=== PATIENT | female | born 1975 | race Hispanic/Latino ===

== ENCOUNTER 2016-02-15 00:22 | Emergency (ER) | payer OTHER ==
[~2016-02-15] VITALS: Ht 157.5 cm; Wt 99.8 kg
[~2016-02-15 00:22] MED LIST: ALBUTEROL SULFAT3 M1 INH; ALBUTEROL0.09 MG/A1 INH; AMOXIL500 MG PO; ATROVENT 0.02%2.5 ML INH; AZITHROMYCIN500 M3 PO; BREO ELLIPTA1 PO1 INH; BUSPIRONE10 MG; CIPRO 500MG (E500 MG PO; DELTASONE20 MG PO; DUONEB 3 MG/3 ML3 ML INH/SOL; EPIPEN ADULT A0.3 MG IM; ESCITALOPRAM10 MG; FIORICET 325 MG1 TAB PO; FLAGYL500 MG PO; FLOMAX0.4 M1 PO; GUAFENESIN400 MG PO; HYDROXYZINE50 MG PO; IBUPROFEN600 M1 PO; IBUPROFEN800 M1 PO; IMITREX50 MG; KETOROLAC TROME10 M1 PO; LOMOTIL 2.5-0.1 EACH PO; MACROBID 100 M100 MG PO; MAXALT10 M1 PO; MEDROL DOSEPAK1 PAC PO; MOBIC15 M1 PO; MOMETASONE0.05 MG/Ac NASB; MOTRIN800 MG PO; NAPHAZOLINE IO; PATADAY2.5 ML OPH; PERCOCET 5-3251 EACH PO; POLYTRIM EYE DR10 ML OPH; POLYTRIM O200 GTT/BO OPH; PRED FORTE 10 M10 ML OPH; PREDNISONE 10MG10 M1 PO; PREDNISONE 20MG20 MG PO; PREDNISONE50 MG PO; PROAIR HFA0.09 MG/Ac INH; PYRIDIUM100 MG PO; PYRIDIUM200 M1 PO; RIZATRIPTAN BEN10 MG PO; ROBITUSSIN W/CO10 ML PO; SINGULAIR10 MG PO; SYMBICORT 160/41 PUF INH; TYLENOL #31 TAB PO; ZITHROMAX Z-PA250 MG PO; ZOFRAN ODT4 M1 SL; ZOFRAN4 M2 PO
[2016-02-15 00:29] VITALS: BP 110/74
--- NOTE | 2016-02-15 00:46 | ED DYSPNEA/ASTHMA COMPLAINT ---
History of Present Illness General Chief Complaint: General Adult Stated Complaint: "MY CHEST HURTS, I BEEN COUGHING A LOT" Source: patient, old records Exam Limitations: no limitations Vital Signs & Intake/Output Vital Signs & Intake/Output Vital Signs Date Time Temp Pulse Resp B/P Pulse O2 O2 Flow FiO2 Ox Delivery Rate 02/14 0032 96 Room Air Room Air 02/14 0029 97.6 111 20 110/74 96 Room Air Allergies Coded Allergies: Penicillins (HIVES 02/15/16) cat dander (HIVES, DYSPNEA 02/15/16) erythromycin base (From ERYTHROCIN) (HIVES 02/15/16) shellfish derived (HIVES, RASH 02/15/16) Reconcile Medications Albuterol Sulfate (Proair Hfa) 0.09 MG/Actuation BERRY 2 PUFF INH PRN ASTHMA ( Reported) Albuterol Sulfate 3 ML NEB 3 ML INH PRN ASTHMA (Reported) Albuterol Sulfate/Ipratropiu (Duoneb) 3 MG/3 ML NEB 1 Vial INH/SARAHI BID ASTHMA (Reported) Azithromycin (Zithromax) 250 MG TABLET 1 DP PO AD BRONCHITIS 2 the first day followed by 1 for days 2-5 Epinephrine (Epipen 2-Fercho) 0.3 MG KIT 0.3 MG IM AD PRN ANAPHYLAXIS (Reported) FLUTICASONE/VILANTEROL (Breo Ellipta 200-25 Mcg INH) 1 POW POW 1 PUFF INH QAM COPD (Reported) Guaifenesin (Guafenesin) 400 MG TAB 1 TAB PO TID PRN COUGH/CONGESTION Ibuprofen 600 MG TABLET 1 TAB PO Q6PRN PRN pain with food Meloxicam (Mobic) 15 MG TABLET 1 TAB PO DAILY PRN tendinitis Olopatadine HCl (Pataday) 0.2 % DROPS 1 GTT OPH DAILY PRN ALLERGIES (Reported ) Ondansetron (Zofran Odt) 4 MG TAB.RAPDIS 1 TAB SL TID PRN NAUSEA Rizatriptan Benzoate (Maxalt) 10 MG TABLET 1 TAB PO QDAY PRN MIGRAINE Robitussin AC (Guaifenesin-Codeine Syrup) 200 MG-20 MG/10 ML LIQUID 10 ML PO Q6P PRN COUGH Triage Note: TRIAGE: PT TO ER C/C URI S/S X 4-5 DAYS. REPORTS PRODUCTIVE COUGH WITH GREENISH PHLEGM AND "A LITTLE BIT OF BLOOD IN THERE". STARTED WITH PAIN TO RT SIDE "AT MY KIDNEY AND LUNG AREA" X COUPLE DAYS WHICH IS WORSE WITH COUGHING. Triage Nurses Notes Reviewed? yes : No Patient currently breastfeeds: No HPI: Patient presents with a productive cough and chest and back pain when she coughs. Patient states that she has been having nausea vomiting diarrhea for the past 3 weeks. She was seen in the emergency department and prescribed medications but they have not been helping. Patient states that she is drinking enough fluids to keep herself hydrated. Patient states that she started with a nonproductive cough approximately 2 weeks ago. Return productive last week and since yesterday she has been getting a sharp stabbing pain in the center of her chest and her right mid back whenever she coughs. There is no pain when she is not coughing. There is no radiation of the pain. At its worst pain is 8 out of 10. Patient states that she's had similar symptoms in the past when she has had bronchitis. Past History Travel History Traveled to [place] past 21 day No Medical History Any Pertinent Medical History? 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 No Review of Systems Review of Systems Constitutional: Reports: no symptoms. EENTM: Reports: no symptoms. Respiratory: Reports: see HPI, cough, sputum production. Cardiovascular: Reports: see HPI. GI: Reports: see HPI, diarrhea, nausea. Genitourinary: Reports: no symptoms. Musculoskeletal: Reports: see HPI, back pain. Skin: Reports: no symptoms. Neurological/Psychological: Reports: no symptoms. Hematologic/Endocrine: Reports: no symptoms. Immunologic/Allergic: Reports: no symptoms. All Other Systems: Reviewed and Negative Physical Exam Physical Exam General Appearance: well developed/nourished, alert, awake, anxious, moderate distress Head: atraumatic Eyes: Bilateral: PERRL, EOMI. Ears, Nose, Throat: normal pharynx, normal ENT inspection, hearing grossly normal Neck: normal inspection, supple Respiratory: normal breath sounds, no respiratory distress, lungs clear, TENDER TO PALPATION Cardiovascular: regular rate/rhythm, normal peripheral pulses Gastrointestinal: normal bowel sounds, soft, non-tender, no organomegaly Extremities: normal inspection, normal capillary refill, normal range of motion, no edema Neurologic/Psych: no motor/sensory deficits, awake, alert, oriented x 3, normal gait, normal mood/affect Skin: intact, normal color, warm/dry Lymphatic: no anterior cervical luis Core Measures ACS in differential dx? No Severe Sepsis Present: No Septic Shock Present: No Progress Differential Diagnosis: asthma, bronchitis, COPD, pulmonary embolism, pneumonia, pneumothorax Plan of Care: Orders Procedure Date/time Status XRY-CHEST XRAY, PA AND LATERAL 02/14 41 Active Diagnostic Imaging: Viewed by Me: Radiology Read. Discussed w/RAD: Radiology Read. CXR Impression: PATIENT: ILENE PINA PRESENT AGE: 40 PATIENT ACCOUNT NO: [id number] : 76 LOCATION: [facility] ORDERING PHYSICIAN: TYRONE JOHNSON MD SERVICE DATE: 02/15/16 EXAM TYPE: RAD - XRY-CHEST XRAY, PA AND LATERAL EXAMINATION: XR CHEST, 2 VIEWS CLINICAL INFORMATION: Productive cough. Rule out pneumonia. COMPARISON: 06/25/2015 TECHNIQUE: PA and lateral views of the chest were obtained. FINDINGS: Lungs are clear. No consolidation, pneumothorax, or pleural effusion. Cardiac and mediastinal contours are normal. Pulmonary vasculature is unremarkable. Trachea is midline. Osseous structures are unremarkable. IMPRESSION: Normal chest radiographs. DICTATED BY: CATHERINE FERRER MD DATE/TIME DICTATED:02/15/16115 RESEARCH GENETICIST:ELIZ DATE/TIME TRANSCRIBED:02/15/16115 CONFIDENTIAL, DO NOT COPY WITHOUT APPROPRIATE AUTHORIZATION. <Electronically signed in Other Vendor System> SIGNED BY: CATHERINE FERRER MD 02/15/16120 Initial ED EKG: none Departure Departure Disposition: HOME OR SELF CARE Condition: Stable Clinical Impression Primary Impression: Bronchitis Referrals: KARLEE TRAMMELL APRN (PCP/Family) Additional Instructions: CONTINUE TO DRINK PLENTY OF FLUIDS RETURN IF SYMPTOMS WORSEN OR FOR ANY CONCERNS FOLLOW UP WITH YOUR PRIMARY PHYSICIAN Departure Forms: Customer Survey General Discharge Information Prescriptions: Current Visit Scripts Azithromycin (Zithromax) 1 DP PO AD #6 TAB 2 the first day followed by 1 for days 2-5 Robitussin AC (Guaifenesin-Codeine Syrup) 10 ML PO Q6P PRN COUGH #240 ML Critical Care Note Critical Care Note Critical Care Time: non-applicable
[2016-02-15] MEDS ORDERED: ZITHROMAX250 M2 PO (01:06)
[2016-02-15] MEDS ORDERED: GUAIFENESIN-COD10 ML PO (01:06)
--- NOTE | 2016-02-15 01:21 | RADIOLOGY REPORT ---
EXAMINATION: XR CHEST, 2 VIEWS CLINICAL INFORMATION: Productive cough. Rule out pneumonia. COMPARISON: 06/25/2015 TECHNIQUE: PA and lateral views of the chest were obtained. FINDINGS: Lungs are clear. No consolidation, pneumothorax, or pleural effusion. Cardiac and mediastinal contours are normal. Pulmonary vasculature is unremarkable. Trachea is midline. Osseous structures are unremarkable. IMPRESSION: Normal chest radiographs.
== END 2016-02-15 01:33 ==
LOC: ERH 00:22
DX: J40 Bronchitis, not specified as acute or chronic (principal); Z87.891 Personal history of nicotine dependence; R05 Cough

== ENCOUNTER 2016-02-19 09:29 | Emergency (ER) | payer OTHER ==
[~2016-02-19] VITALS: Ht 157.5 cm; Wt 99.8 kg
[~2016-02-19 09:29] MED LIST changes: +GUAIFENESIN-COD10 ML PO; +ZITHROMAX250 M2 PO
--- NOTE | 2016-02-19 09:45 | ED GENERAL ADULT ---
History of Present Illness General Chief Complaint: Upper Respiratory Sx/Fever Stated Complaint: URI/VOMITING Source: patient, old records Exam Limitations: no limitations Vital Signs & Intake/Output Vital Signs & Intake/Output Vital Signs Date Time Temp Pulse Resp B/P Pulse O2 O2 Flow FiO2 Ox Delivery Rate 02/18 1142 99.3 88 18 129/63 91 Room Air 02/18 1011 97 02/18 1010 Room Air Room Air 02/18 0936 98.0 90 15 113/79 97 Room Air Room Air Allergies Coded Allergies: Penicillins (HIVES 02/19/16) cat dander (HIVES, DYSPNEA 02/19/16) erythromycin base (From ERYTHROCIN) (HIVES 02/19/16) shellfish derived (HIVES, RASH 02/19/16) Reconcile Medications Albuterol Sulfate (Proair Hfa) 0.09 MG/Actuation BERRY 2 PUFF INH PRN ASTHMA ( Reported) Albuterol Sulfate 3 ML NEB 3 ML INH PRN ASTHMA (Reported) Albuterol Sulfate/Ipratropiu (Duoneb) 3 MG/3 ML NEB 1 Vial INH/SARAHI BID ASTHMA (Reported) Azithromycin (Zithromax) 250 MG TABLET 1 DP PO AD BRONCHITIS 2 the first day followed by 1 for days 2-5 Benzonatate 200 MG CAPSULE 1 CAP PO TID PRN cough Epinephrine (Epipen 2-Fercho) 0.3 MG KIT 0.3 MG IM AD PRN ANAPHYLAXIS (Reported) FLUTICASONE/VILANTEROL (Breo Ellipta 200-25 Mcg INH) 1 POW POW 1 PUFF INH QAM COPD (Reported) Guaifenesin (Guafenesin) 400 MG TAB 1 TAB PO TID PRN COUGH/CONGESTION Ibuprofen 600 MG TABLET 1 TAB PO Q6PRN PRN pain with food Meloxicam (Mobic) 15 MG TABLET 1 TAB PO DAILY PRN tendinitis Olopatadine HCl (Pataday) 0.2 % DROPS 1 GTT OPH DAILY PRN ALLERGIES (Reported ) Ondansetron (Zofran Odt) 4 MG TAB.RAPDIS 1 TAB SL TID PRN NAUSEA Prednisone 10 MG TABLET 4 TAB PO DAILY BRONCHOSPASM Promethazine HCl 25 MG TABLET 1 TAB PO Q6P PRN nausea/cough Rizatriptan Benzoate (Maxalt) 10 MG TABLET 1 TAB PO QDAY PRN MIGRAINE Robitussin AC (Guaifenesin-Codeine Syrup) 200 MG-20 MG/10 ML LIQUID 10 ML PO Q6P PRN COUGH Triage Note: PT TO ED "THIS IS MY FOURTH TIME COMING HERE FOR THE SAME THING AND THEY KEEP TELLING ME THAT NOTHING IS WRONG WITH ME." PT COMPLAINS OF HAVING A PRODUCTIVE COUGH WITH GREEN PHLEGM FOR "MORE THAN 28 DAYS." AND VOMITING BETWEEN COUGHING. PT WAS PUT ON ANTIBIOTICS THAT HAVEN'T BEEN HELPING HER. O2 WNL IN TRIAGE. NO ACUTE DISTRESS NTOED. ALSO COMPLAINS OF "POSSIBLE FEVERS SINCE I BROKE OUT IN A COLD SORE TODAY." Triage Nurses Notes Reviewed? yes : No Patient currently breastfeeds: No HPI: Patient is a 40-year-old female presents complaining of cough, dyspnea, nausea, vomiting. Patient reports that she began with vomiting and a cough over 28 days ago. Patient has been seen in the emergency department multiple times over the past 1 month and reports no improvement in her symptoms. Patient was seen 4 days ago and was placed on cough medication and levofloxacin but reports symptoms have been worsening. Cough with sputum production. Associated post tussive vomiting and vomiting when she attempts to drink water. Has not been able to eat or drink for the past couple of days. Intermittent subjective fevers. Denies sick contacts. (ALBERTO SHELL) Past History Travel History Traveled to [place] past 21 day No Medical History Any Pertinent Medical History? 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 No (ALBERTO SHELL) Review of Systems Review of Systems Constitutional: Reports: chills, fever, malaise, weakness. EENTM: Reports: no symptoms. Respiratory: Reports: cough, short of breath, sputum production, wheezing. Cardiovascular: Denies: chest pain. GI: Reports: nausea, vomiting. Denies: abdominal pain. Genitourinary: Reports: no symptoms. Musculoskeletal: Reports: no symptoms. Skin: Reports: no symptoms. Neurological/Psychological: Reports: no symptoms. Hematologic/Endocrine: Reports: no symptoms. Immunologic/Allergic: Reports: no symptoms. (ALBERTO SHELL) Physical Exam Physical Exam General Appearance: alert, awake, obese Head: atraumatic, normal appearance Eyes: Bilateral: normal appearance, PERRL, EOMI. Ears, Nose, Throat: normal pharynx, normal ENT inspection, hearing grossly normal, moist mucus membranes Neck: normal inspection, supple, full range of motion Respiratory: no respiratory distress, mild diffuse expiratory wheezing Cardiovascular: regular rate/rhythm Gastrointestinal: soft, non-tender Back: normal inspection, normal range of motion Extremities: normal inspection, normal capillary refill, normal range of motion, no edema Neurologic/Psych: no motor/sensory deficits, awake, alert, oriented x 3, normal gait, normal mood/affect Skin: intact, normal color, warm/dry Lymphatic: no anterior cervical luis Core Measures ACS in differential dx? No CVA/TIA Diagnosis: No Severe Sepsis Present: No Septic Shock Present: No (ALBERTO SHELL) Progress Differential Diagnoses I considered the following diagnoses in my evaluation of the patient: bronchitis , pneumonia, sepsis, PE, influenza, viral uri Plan of Care: Orders Procedure Date/time Status URINALYSIS 02/18 951 Active COMPREHENSIVE METABOLIC PANEL 02/18 951 Complete CBC WITHOUT DIFFERENTIAL 02/18 951 Complete Laboratory Tests 02/19/16 1005: Anion Gap 12, Estimated GFR > 60, BUN/Creatinine Ratio 10.0, Glucose 97, Calcium 9.3, Total Bilirubin 0.4, AST 16, ALT 18, Alkaline Phosphatase 77, Total Protein 7.1, Albumin 3.5, Globulin 3.6, Albumin/Globulin Ratio 1.0 L, CBC w Diff NO MAN DIFF REQ, RBC 4.80, MCV 60.0 L, MCH 18.5 L, RDW 19.5 H, MPV 8.5, Gran % 65.6, Lymphocytes % 23.5, Monocytes % 7.5, Eosinophils % 3.0, Basophils % 0.4, Absolute Granulocytes 8.4 H, Absolute Lymphocytes 3.0, Absolute Monocytes 1.0 H, Absolute Eosinophils 0.4, Absolute Basophils 0.1, PUBS MCHC 30.8 L 1050: Reports mild improvement, continues with chest discomfort when she coughs. Toradol ordered. Results of labs discussed with patient. Patient had chest x- ray 4 days ago that was negative, on levaquin currently. Repeat chest x-ray deferred secondary to exam. Wells criteria low risk, perc negative. PE ruled out. Hemoglobin and hematocrit similar to previous. 1140: Patient reports feeling moderate improvement. Lungs re-examined, clear throughout, no acute respiratory distress. Patient appears to be resting comfortably. Appears stable for discharge and outpatient follow up. (ALBERTO SHELL) Initial ED EKG: none (ALBERTO SHELL) Departure Departure Time of Disposition: 1144 Disposition: HOME OR SELF CARE Condition: Stable Clinical Impression Primary Impression: Upper respiratory infection Qualifiers: URI type: unspecified URI Qualified Code: J06.9 - Acute upper respiratory infection, unspecified Secondary Impressions: Chronic anemia Referrals: KARLEE TRAMMELL APRN (PCP/Family) Additional Instructions: Follow-up with your primary care provider within one week for recheck and further evaluation. Call today for appointment. Continue the antibiotics as previously directed. Use your albuterol as previously directed. Return to the ER if worsening of symptoms. Departure Forms: Customer Survey General Discharge Information Prescriptions: Current Visit Scripts Promethazine HCl 1 TAB PO Q6P PRN nausea/cough #15 TAB Benzonatate 1 CAP PO TID PRN cough #30 CAP Prednisone 4 TAB PO DAILY #12 TAB (ALBERTO SHELL) PA/UNION LABORER Co-Sign Statement Statement: ED Attending supervision documentation- [] I saw and evaluated the patient. I have also reviewed all the pertinent lab results and diagnostic results. I agree with the findings and the plan of care as documented in the PA's/UNION LABORER's documentation. [X] I have reviewed the ED Record and agree with the PA's/UNION LABORER's documentation. [] Additions or exceptions (if any) to the PAs/UNION LABORER's note and plan are summarized below: [] (NARAYAN FOUNTAIN,MARIANA) Critical Care Note Critical Care Note Critical Care Time: non-applicable (ALBERTO SHELL)
[2016-02-19 10:16] LABS: ABSOLUTE BASOPHIL COUNT 0.1 /CUMM (0.0-0.2); ABSOLUTE EOSINOPHIL COUNT 0.4 /CUMM (0.0-0.7); ABSOLUTE GRANULOCYTE CT 8.4 /CUMM (1.4-6.5); BASOPHIL % 0.4 % (0.0-2.0); GRANULOCYTE % 65.6 % (42.2-75.2); HEMATOCRIT 28.8 % (37-47); MEAN CORPUSCULAR HGB 18.5 PG (27.0-31.0); MEAN CORPUSCULAR HGB CONC 30.8 G/DL (33.0-37.0); MEAN PLATELET VOLUME 8.5 FL (7.4-10.4); PLATELET COUNT 320 /CUMM (130-400); RBC DISTRIBUTION WIDTH 19.5 % (11.5-14.5); WHITE BLOOD CELL COUNT 12.8 /CUMM (4.8-10.8)
[2016-02-19 11:42] VITALS: BP 129/63
[2016-02-19] MEDS ORDERED: BENZONATATE200 M1 PO (11:46)
[2016-02-19] MEDS ORDERED: PROMETHAZINE HC25 M3 PO (11:46)
[2016-02-19] MEDS ORDERED: PREDNISONE10 M2 PO (11:46)
== END 2016-02-19 11:51 ==
LOC: ERH 09:29
PROVIDERS: Physician Assistant
DX: J06.9 Acute upper respiratory infection, unspecified (principal); D64.9 Anemia, unspecified; Z87.891 Personal history of nicotine dependence
CPT/HCPCS: 1263; 81025; 96374; 96375; J1885; J2550; J2930

== ENCOUNTER 2016-07-02 23:08 | Emergency (ER) | payer OTHER ==
[~2016-07-02 23:08] MED LIST changes: +BENZONATATE200 M1 PO; +PREDNISONE10 M2 PO; +PROMETHAZINE HC25 M3 PO
[2016-07-02 23:17] VITALS: BP 122/76
--- NOTE | 2016-07-02 23:36 | ED NECK/BACK PAIN COMPLAINT ---
History of Present Illness General Chief Complaint: Low Back Pain/Injury Stated Complaint: TAILBONE PAIN X 2 DAYS,WORSE TODAY NO KNOWN INJURY Source: patient Exam Limitations: no limitations Vital Signs & Intake/Output Vital Signs & Intake/Output Vital Signs Date Time Temp Pulse Resp B/P B/P Pulse O2 O2 Flow FiO2 Mean Ox Delivery Rate 07/02 2317 97.6 109 22 122/76 97 ED Intake and Output 07/03 0000 07/02 1200 Intake Total 30 Output Total Balance 30 Intake, Oral 30 Allergies Coded Allergies: Penicillins (HIVES 02/19/16) cat dander (HIVES, DYSPNEA 02/19/16) erythromycin base (From ERYTHROCIN) (HIVES 02/19/16) shellfish derived (HIVES, RASH 02/19/16) Reconcile Medications Albuterol Sulfate (Proair Hfa) 0.09 MG/Actuation BERRY 2 PUFF INH PRN ASTHMA ( Reported) Albuterol Sulfate 3 ML NEB 3 ML INH PRN ASTHMA (Reported) Albuterol Sulfate/Ipratropiu (Duoneb) 3 MG/3 ML NEB 1 Vial INH/SARAHI BID ASTHMA (Reported) Azithromycin (Zithromax) 250 MG TABLET 1 DP PO AD BRONCHITIS 2 the first day followed by 1 for days 2-5 Benzonatate 200 MG CAPSULE 1 CAP PO TID PRN cough Cyclobenzaprine HCl 10 MG TABLET 1 TAB PO 4 TIMES/DAY PRN MUSCLE SPASM Epinephrine (Epipen 2-Fercho) 0.3 MG KIT 0.3 MG IM AD PRN ANAPHYLAXIS (Reported) FLUTICASONE/VILANTEROL (Breo Ellipta 200-25 Mcg INH) 1 POW POW 1 PUFF INH QAM COPD (Reported) Guaifenesin (Guafenesin) 400 MG TAB 1 TAB PO TID PRN COUGH/CONGESTION Ibuprofen 800 MG TABLET 1 TAB PO 4 TIMES/DAY PRN PAIN Ibuprofen 600 MG TABLET 1 TAB PO Q6PRN PRN pain with food Meloxicam (Mobic) 15 MG TABLET 1 TAB PO DAILY PRN tendinitis Olopatadine HCl (Pataday) 0.2 % DROPS 1 GTT OPH DAILY PRN ALLERGIES (Reported ) Ondansetron (Zofran Odt) 4 MG TAB.RAPDIS 1 TAB SL TID PRN NAUSEA Prednisone 10 MG TABLET 4 TAB PO DAILY BRONCHOSPASM Promethazine HCl 25 MG TABLET 1 TAB PO Q6P PRN nausea/cough Rizatriptan Benzoate (Maxalt) 10 MG TABLET 1 TAB PO QDAY PRN MIGRAINE Robitussin AC (Guaifenesin-Codeine Syrup) 200 MG-20 MG/10 ML LIQUID 10 ML PO Q6P PRN COUGH Triage Note: PER PT HURT TAIL BONE UNABLE TO FIND COMF POSITION, UNSURE HOW INJURY OCCURRED Triage Nurses Notes Reviewed? yes Onset: Gradual Duration: day(s):, waxing and waning Timing: recent history Quality/Severity: moderate Location: lumbar spine Radiation: none Context: UNKNOWN CONTEXT : No Patient currently breastfeeds: No HPI: 40 yo woman presents with lower back pain for the past 2 days. She notes that she spends most of her day sitting in a car. 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 We spend our day driving around.... " She notes a feeling of muscle tightness in her lower back, without weakness or radiation. She notes no trauma or heavy lifting. She is otherwise well. Past History Travel History Traveled to [place] past 21 day No Medical History Any Pertinent Medical History? 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 No Review of Systems Review of Systems Constitutional: Reports: no symptoms. Eyes: Reports: no symptoms. Ears, Nose, Throat, Mouth: Reports: no symptoms. Respiratory: Reports: no symptoms. Cardiovascular: Reports: no symptoms. Gastrointestinal/Abdominal: Reports: no symptoms. Musculoskeletal: Reports: no symptoms. Skin: Reports: no symptoms. Neurological/Psychological: Reports: no symptoms. All Other Systems: Reviewed and Negative Physical Exam Physical Exam General Appearance: well developed/nourished, mild distress Head: atraumatic Eyes: Bilateral: normal appearance. Ears, Nose, Throat, Mouth: hearing grossly normal Neck: normal inspection, supple, full range of motion, normal alignment Respiratory: normal breath sounds Cardiovascular: regular rate/rhythm Gastrointestinal: soft, non-tender Back: normal inspection, muscle spasm, no vertebral tenderness Extremities: normal range of motion Neurologic/Psych: awake, alert, oriented x 3, normal mood/affect Skin: intact, normal color, warm/dry Comments: strength, light touch intact in lower extremities. pt able to ambulate, but with difficulty. Progress Differential Diagnosis: herniated disc, myofascial strain, sciatica Plan of Care: pt given toradol 60mg im, acetaminophen 975mg and flexeril 10mg. Departure Departure Disposition: HOME OR SELF CARE Condition: Stable Clinical Impression Primary Impression: Back pain Secondary Impressions: Muscle spasm Referrals: KARLEE TRAMMELL APRN (PCP/Family) Departure Forms: Customer Survey General Discharge Information Prescriptions: Current Visit Scripts Ibuprofen 1 TAB PO 4 TIMES/DAY PRN PAIN #90 TAB Ref 1 Cyclobenzaprine HCl 1 TAB PO 4 TIMES/DAY PRN MUSCLE SPASM #90 TAB Ref 1 Comments benign exam.... likely musculoskeletal... advised close follow up.
[2016-07-02] MEDS ORDERED: IBUPROFEN800 M1 PO (23:47)
[2016-07-02] MEDS ORDERED: CYCLOBENZAPRINE10 M1 PO (23:47)
== END 2016-07-03 00:04 ==
LOC: ERH 23:08
DX: M62.830 Muscle spasm of back (principal)
CPT/HCPCS: 96372; J1885

== ENCOUNTER 2016-09-03 07:51 | Emergency (ER) | payer OTHER ==
[~2016-09-03] VITALS: Ht 157.5 cm; Wt 95.3 kg
[~2016-09-03 07:51] MED LIST changes: -ALBUTEROL SULFAT3 M1 INH; +ALBUTEROL2.5 MG/3 M INH/SOL; +BREO ELLIPTA 21 EACH INH; -BREO ELLIPTA1 PO1 INH; +CYCLOBENZAPRINE10 M1 PO; +EPIPEN 2-P0.3 MG/0.3 IM; -EPIPEN ADULT A0.3 MG IM; +PROAIR HFA8.5 GM INH
[2016-09-03 08:14] LABS: ABSOLUTE BASOPHIL COUNT 0 /CUMM (0.0-0.2); ABSOLUTE EOSINOPHIL COUNT 0.4 /CUMM (0.0-0.7); ABSOLUTE GRANULOCYTE CT 9.2 /CUMM (1.4-6.5); ABSOLUTE LYMPH COUNT 2.8 /CUMM (1.2-3.4); ABSOLUTE MONOCYTE COUNT 0.6 /CUMM (0.10-0.60); BASOPHIL % 0.1 % (0.0-2.0); EOSINOPHIL % 2.9 % (0-5); GRANULOCYTE % 71.1 % (42.2-75.2); HEMATOCRIT 34.9 % (37-47); MEAN CORPUSCULAR HGB 20.6 PG (27.0-31.0); MEAN CORPUSCULAR HGB CONC 31.1 G/DL (33.0-37.0); MEAN PLATELET VOLUME 8.6 FL (7.4-10.4); RBC DISTRIBUTION WIDTH 35.3 % (11.5-14.5); RED BLOOD CELL CT 5.27 /CUMM (4.20-5.40); WHITE BLOOD CELL COUNT 12.9 /CUMM (4.8-10.8)
[2016-09-03 08:28] LABS: MEAN CORPUSCULAR VOLUME 66.2 FL (81.0-99.0)
[2016-09-03 08:29] LABS: PLATELET COUNT 296 /CUMM (130-400)
--- NOTE | 2016-09-03 09:23 | ED CARDIAC/CP/PALPITATIONS ---
History of Present Illness General Chief Complaint: Chest Pain Stated Complaint: "STABBING PAIN IN CHEST" Source: patient, family Exam Limitations: no limitations Vital Signs & Intake/Output Vital Signs & Intake/Output Vital Signs Date Time Temp Pulse Resp B/P B/P Pulse O2 O2 Flow FiO2 Mean Ox Delivery Rate 09/03 1034 98.1 80 20 110/60 98 Room Air 09/03 0923 98.0 88 18 108/66 96 Room Air 09/03 0804 97.7 96 16 121/80 98 Room Air Allergies Coded Allergies: Penicillins (HIVES 02/19/16) cat dander (HIVES, DYSPNEA 02/19/16) erythromycin base (From ERYTHROCIN) (HIVES 02/19/16) shellfish derived (HIVES, RASH 02/19/16) Reconcile Medications Albuterol Sulfate (Proair Hfa) 90 MCG HFA.AER.AD 2 PUF INH Q4-6 PRN PRN ASTHMA (Reported) Albuterol Sulfate 2.5 MG/3 ML (0.083 %) VIAL.NEB 1 Vial INH/SARAHI Q4P PRN ASTHMA (Reported) Budesonide/Formoterol Fumarate (Symbicort 160-4.5 Mcg Inhaler) 160 MCG-4.5 MCG/ ACTUATION HFA.AER.AD 2 PUF INH BID BREATHING PROBLEMS (Reported) Epinephrine (Epipen 2-Fercho) 0.3 MG/0.3 ML AUTO.INJCT 0.3 ML IM DAILY PRN ANAPHYLAXIS (Reported) Fluticasone/Vilanterol (Breo Ellipta 200-25 Mcg INH) 200 MCG-25 MCG/DOSE BLST.W.DEV 1 PUFF INH DAILY COPD (Reported) Ibuprofen 800 MG TABLET 1 TAB PO 4 TIMES/DAY PRN PAIN Montelukast Sodium 10 MG TABLET 1 TAB PO DAILY ALLERGIES (Reported) Olopatadine HCl (Pataday) 0.2 % DROPS 1 GTT OPH DAILY ALLERGIES (Reported) Ondansetron (Zofran Odt) 4 MG TAB.RAPDIS 1 TAB SL TID PRN NAUSEA Promethazine HCl 25 MG TABLET 1 TAB PO Q6P PRN nausea/cough Triage Note: 40 YEAR OLD FEMALE STATES THAT SHE HAS BEEN GETTING AND INTERMITTANT MID CHEST PAIN THAT RADIATES UNDER HER L BREAST SINCE YESTERDAY. DENIES SOB, STATES THAT SHE HAS SOME DOUBLE VISION YESTERDAY WHEN IT FIRST STARTED BUT DENIES AT THIS TIME. Triage Nurses Notes Reviewed? yes Onset: Abrupt Duration: day(s): Timing: recent history Quality/Severity: sharp, stabbing Location: substernal Radiation: left chest Activities at Onset: none Prior Chest Pain/Card Workup: no prior chest pain : No Patient currently breastfeeds: No HPI: 40-year-old female with history of asthma presents to emergency department complaining of chest pain since yesterday. She describes chest pain as substernal with radiation to her left chest, sharp and intermittent stabbing which lasts less than 30 seconds and occurs every 2-3 minutes. She has never had a pain like this in the past. Pain is worse with breathing, she experiences posterior left chest pain with breathing. Chest pain is getting worse since yesterday, described as 7/10 currently. She also had a spell of dizziness yesterday lasting about one hour which has resolved. She denies fevers, chills, cough, hemoptysis, nausea, vomiting, dyspnea, recent asthma exacerbation. (KLARISSA GE PA-C) Past History Travel History Traveled to [place] past 21 day No Medical History Any Pertinent Medical History? 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 No (KLARISSA GE PA-C) Review of Systems Review of Systems Constitutional: Reports: no symptoms. EENTM: Reports: no symptoms. Respiratory: Reports: no symptoms. Cardiovascular: Reports: see HPI. GI: Reports: no symptoms. Genitourinary: Reports: no symptoms. Musculoskeletal: Reports: no symptoms. Skin: Reports: no symptoms. Neurological/Psychological: Reports: see HPI. Hematologic/Endocrine: Reports: no symptoms. Immunologic/Allergic: Reports: no symptoms. All Other Systems: Reviewed and Negative (KLARISSA GE PA-C) Physical Exam Physical Exam Cardiovascular: SEE BELOW Comments: Well-developed well-nourished person in no acute distress HEENT: HEAD is atraumatic, normocephalic Neck: Supple, normal range of motion without pain or tenderness Back: Nontender, Full range of motion Cardiovascular: Regular rate and rhythms no murmurs rubs or gallops, normal JVP Respiratory: Sternum tenderness, left anterior and posterior ribcage tenderness.There were no bony deformities, no asymmetry. No respiratory distress. Patient speaking in full complete sentences. Breath sounds clear to auscultation bilaterally: NO W/R/R Extremity: No edema, full range of motion of extremities Neuro: Alert oriented x3, motor sensory normal, There were no obvious focal neurologic abnormalities. Skin: No appreciable rash on exposed skin, skin is warm and dry. Psych: Mood and affect is normal, memory and judgment is normal. Core Measures ACS in differential dx? Yes Severe Sepsis Present: No Septic Shock Present: No (JOO WILL,KLARISSA PAULINO) Progress Differential Diagnosis: AMI, aortic dissection, CHF/pulm edema, costochondritis, hyperkalemia, musculoskeletal pain, myocarditis, pericarditis, pneumonia, pneumothorax, pulmonary embolism, unstable angina Plan of Care: Orders Procedure Date/time Status Add-on Test (ER Only) 09/03 0924 Active TROPONIN LEVEL 09/03 0803 Complete HUMAN BETA HCG SCREEN 09/03 0803 Complete COMPREHENSIVE METABOLIC PANEL 09/03 0803 Complete CBC WITHOUT DIFFERENTIAL 09/03 0803 Complete EKG 09/03 0753 Active Laboratory Tests 09/03/16 0803: Anion Gap 10, Estimated GFR > 60, BUN/Creatinine Ratio 11.3, Glucose 93, Calcium 9.3, Total Bilirubin 0.4, AST 17, ALT 26, Alkaline Phosphatase 88, Troponin I < 0.01, Total Protein 7.3, Albumin 3.9, Globulin 3.4, Albumin/Globulin Ratio 1.1, Total Beta HCG NEGATIVE, CBC w Diff NO MAN DIFF REQ, RBC 5.27, MCV 66.2 L, MCH 20.6 L, RDW 35.3 H, MPV 8.6, Gran % 71.1, Lymphocytes % 21.4, Monocytes % 4.5, Eosinophils % 2.9, Basophils % 0.1, Absolute Granulocytes 9.2 H, Absolute Lymphocytes 2.8, Absolute Monocytes 0.6, Absolute Eosinophils 0.4, Absolute Basophils 0, PUBS MCHC 31.1 L First troponin is negative, EKG does not show signs of ischemia, unchanged since last EKG in 2016. The patient's pain is reproducible on exam. The patient was discussed with Dr. Boone. Will obtain chest x-ray. CXR within normal limits, no acute abnormality. The patient is likely having chest pain secondary to chostochondritis as it is reproducible on exam. The patient is in no acute distress, her vital signs are stable, she is well- appearing. The patient will follow-up with her primary care doctor she will call to inform them she was seen and evaluated today. The patient was instructed to take Motrin 800 mg 3 times a day for the next 3 days for costochondritis. She will Return with any worsening symptoms or concerns. The patient was given a cover stripper to follow up with regarding her chest pain. Dr. Boone is in agreement with the plan of care. (JOO WILL,KLARISSA PAULINO) Diagnostic Imaging: Viewed by Me: Radiology Read. Discussed w/RAD: Radiology Read. CXR Impression: PATIENT: ILENE PINA PRESENT AGE: 40 PATIENT ACCOUNT NO: [id number] : 76 LOCATION: [facility] ORDERING PHYSICIAN: KLARISSA GE PA-C SERVICE DATE: 09/03/16 EXAM TYPE: RAD - XRY- CHEST XRAY, PA AND LATERAL EXAMINATION: XR CHEST CLINICAL INFORMATION: Chest pain. COMPARISON: Previous chest x-rays most recent February 2016 TECHNIQUE: 2 views of the chest were obtained. FINDINGS: The cardiac and mediastinal contours are normal. The lungs are clear. There is no pleural effusion or pneumothorax. Bony structures are unremarkable. IMPRESSION: Unremarkable examination. DICTATED BY: TERRANCE GUARDADO MD DATE/TIME DICTATED:09/03/161012 MEAT INSPECTOR: ELIZ DATE/TIME TRANSCRIBED:09/03/161012 CONFIDENTIAL, DO NOT COPY WITHOUT APPROPRIATE AUTHORIZATION. <Electronically signed in Other Vendor System> SIGNED BY: TERRANCE GUARDADO MD 09/03/16 101 Initial ED EKG: sinus rhythm @89bpm, no ST segment elevation or depression, artifact present Prior EKG: unchanged (10/16/15) (JOO WILL,KLARISSA PAULINO) Departure Departure Disposition: HOME OR SELF CARE Condition: Stable Clinical Impression Primary Impression: Acute costochondritis Secondary Impressions: Chest pain Referrals: KARLEE TRAMMELL APRN (PCP/Family) YOHANA FOUNTAIN PhD,TOPHER Bridges Additional Instructions: Take Motrin 800mg three times a day for next 3 days. Follow up with your primary care doctor, call their office to inform them that you were seen and evaluated today. You were given a cover stripper to follow up with regarding your chest pain , call to make an appointment. Return with any worsening symptoms or concerns. Please note that there might be incidental findings in your evaluation that are unrelated to the current emergency department visit. Please notify your primary care doctor about this emergency department visit in order to obtain and review all of the testing performed so that these incidental findings can be monitored as needed. If you had an x-ray performed, please understand that some fractures may not be seen on the initial set of x-rays. If your symptoms persist you might need a repeat set of x-rays to check for such a fracture. If you're unable to follow up as outlined in the discharge instructions please return to the emergency department. Thank you for choosing the [facility] Emergency Department for your care. It was a pleasure to serve you today. Departure Forms: Customer Survey General Discharge Information (JOO WILL,KLARISSA PAULINO) PA/DIRECTOR OF MANAGED CARE Co-Sign Statement Statement: ED Attending supervision documentation- x I saw and evaluated the patient. I have also reviewed all the pertinent lab results and diagnostic results. I agree with the findings and the plan of care as documented in the PA's/DIRECTOR OF MANAGED CARE's documentation. [] I have reviewed the ED Record and agree with the PA's/DIRECTOR OF MANAGED CARE's documentation. [] Additions or exceptions (if any) to the PAs/DIRECTOR OF MANAGED CARE's note and plan are summarized below: [] (ABNER FOUNTAIN,MIKE) Critical Care Note Critical Care Note Critical Care Time: non-applicable (JOO WILL,KLARISSA PAULINO)
[2016-09-03] MEDS ORDERED: MONTELUKAST SOD10 M1 PO (09:39)
[2016-09-03] MEDS ORDERED: SYMBICORT 16010.2 GM INH (09:39)
--- NOTE | 2016-09-03 10:17 | RADIOLOGY REPORT ---
EXAMINATION: XR CHEST CLINICAL INFORMATION: Chest pain. COMPARISON: Previous chest x-rays most recent February 2016 TECHNIQUE: 2 views of the chest were obtained. FINDINGS: The cardiac and mediastinal contours are normal. The lungs are clear. There is no pleural effusion or pneumothorax. Bony structures are unremarkable. IMPRESSION: Unremarkable examination.
[2016-09-03 10:34] VITALS: BP 110/60
== END 2016-09-03 10:33 ==
LOC: ERH 07:51
PROVIDERS: Emergency Medicine
DX: M94.0 Chondrocostal junction syndrome [Tietze] (principal); R07.89 Other chest pain
CPT/HCPCS: 93005; 93010

== ENCOUNTER 2017-08-10 23:46 | Emergency (ER) | payer OTHER ==
[~2017-08-10] VITALS: Ht 157.5 cm; Wt 104.3 kg
[~2017-08-10 23:46] MED LIST changes: +IMITREX100 M1 PO; +MONTELUKAST SOD10 M1 PO; +PRILOSEC OTC20 M1 PO; +SYMBICORT 16010.2 GM INH; +TRAMADOL HCL50 M1 PO
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
[2017-08-11] MEDS ORDERED: IBUPROFEN600 M1 PO (01:29)
[2017-08-11] MEDS ORDERED: CYCLOBENZAPRINE10 M1 PO (01:29)
[2017-08-11 01:33] VITALS: BP 121/62
== END 2017-08-11 01:34 ==
LOC: ERH 23:46
DX: S16.1XXA Strain of muscle, fascia and tendon at neck level, initial encounter (principal); S40.012A Contusion of left shoulder, initial encounter; R51 Headache; V89.2XXA Person injured in unspecified motor-vehicle accident, traffic, initial encounter
CPT/HCPCS: 73030-LT

== ENCOUNTER 2017-10-22 23:26 | Emergency (ER) | payer OTHER ==
[~2017-10-22] VITALS: Ht 157.5 cm; Wt 108.0 kg
--- NOTE | 2017-10-23 01:28 | ED GI/GU/ABDOMINAL COMPLAINT ---
See Addendum History of Present Illness General Chief Complaint: Female Urogenital Problems Stated Complaint: PT C/O LT SIDE ABD PAIN RAD TO BACK Source: patient, old records Exam Limitations: no limitations Vital Signs & Intake/Output Vital Signs & Intake/Output Vital Signs Date Time Temp Pulse Resp B/P B/P Pulse O2 O2 Flow FiO2 Mean Ox Delivery Rate 10/23 1101 98.7 72 20 99/61 99 Room Air 10/23 0920 98.6 85 20 115/61 100 Room Air 10/23 0457 98.2 81 19 135/71 96 Room Air 10/23 0221 Room Air 10/23 0218 99.3 92 18 101/53 98 Room Air 10/22 2336 100.0 102 16 111/74 97 ED Intake and Output 10/23 0000 10/22 1200 Intake Total Output Total Balance Patient 238 lb Weight Allergies Coded Allergies: Penicillins (HIVES 10/11/17) cat dander (HIVES, DYSPNEA 10/11/17) erythromycin base (From ERYTHROCIN) (HIVES 10/11/17) shellfish derived (HIVES, RASH 10/11/17) Reconcile Medications Albuterol Sulfate (Proair Hfa) 90 MCG HFA.AER.AD 2 PUF INH Q4-6 PRN PRN ASTHMA (Reported) Albuterol Sulfate 2.5 MG/3 ML (0.083 %) VIAL.NEB 1 Vial INH/SARAHI Q4P PRN ASTHMA (Reported) Budesonide/Formoterol Fumarate (Symbicort 160-4.5 Mcg Inhaler) 160 MCG-4.5 MCG/ ACTUATION HFA.AER.AD 2 PUF INH BID BREATHING PROBLEMS (Reported) Epinephrine (Epipen 2-Fercho) 0.3 MG/0.3 ML AUTO.INJCT 0.3 ML IM DAILY PRN ANAPHYLAXIS (Reported) Fluticasone/Vilanterol (Breo Ellipta 200-25 Mcg INH) 200 MCG-25 MCG/DOSE BLST.W.DEV 1 PUFF INH DAILY COPD (Reported) Ibuprofen 800 MG TABLET 1 TAB PO TID PRN PAIN Ibuprofen 800 MG TABLET 1 TAB PO TID PRN pain Omeprazole Magnesium (Prilosec Otc) 20 MG TABLET.DR 1 TAB PO DAILY gastritis Sumatriptan Succinate (Imitrex) 100 MG TABLET 1 TAB PO AD PRN HEADACHE with fluids as early as possible after the onset of a migraine attack Triage Note: 41YO FEMALE TO TRIAGE W/CO L ABD PAIN THAT RADIATES TO BACK. SEEN HERE 9/2 DXED OVARIAN CYST UNABLE TO SEE [employer]. PAIN IS WORSENING. Triage Nurses Notes Reviewed? yes LMP (ages 10-50): unknown ? n Is pt currently ? No Onset: Last week Duration: day(s):, constant, continues in ED, getting worse Timing: recent history Quality/Severity: sharpness, severe, vomiting Location: left upper quadrant Radiation: groin Activities at Onset: rest Prior Abdominal Problems: similar symptoms Past Sexual History: Unobtainable at this time Modifying Factors: Worsens With: movement, palpation. Associated Symptoms: abdominal pain, loss of appetite, nausea/vomiting HPI: 1 week prior to admission patient complains of progressive lower quadrant pain described as sharp severe waxing and waning radiating to the left inguinal area. She was evaluated and found to have a left adnexal mass, multifibroid uterus with pelvic fluid. The pain is increased in severity colicky with nausea and vomiting. She denies fever chills diarrhea chest pain cough shortness breath headache dysuria rash bleeding vaginal discharge. (John Boone MD) Past History Travel History Traveled to [place] past 21 day No Medical History Any Pertinent Medical History? see below for history Neurological: migraine EENT: NONE Cardiovascular: NONE Respiratory: asthma Gastrointestinal: NONE Hepatic: NONE Renal: nephrolithiasis, KIDNEY STONES Musculoskeletal: NONE Psychiatric: NONE Endocrine: NONE Blood Disorders: anemia Cancer(s): NONE [employer]/Reproductive: miscarriage, OVARIAN CYST Surgical History Surgical History: tubal ligation, LITHOTRIPSY KIDNEY STENT Psychosocial History What is your primary language Persian Tobacco Use: Never used Family History Hx Contributory? No (John Boone MD) Review of Systems Review of Systems Constitutional: Reports: no symptoms. EENTM: Reports: no symptoms. Respiratory: Reports: no symptoms. Cardiovascular: Reports: no symptoms. GI: Reports: see HPI, abdominal pain, nausea, vomiting. Genitourinary: Reports: see HPI, pain. Musculoskeletal: Reports: no symptoms. Skin: Reports: no symptoms. Neurological/Psychological: Reports: no symptoms. Hematologic/Endocrine: Reports: no symptoms. Immunologic/Allergic: Reports: no symptoms. All Other Systems: Reviewed and Negative (John Boone MD) Physical Exam Physical Exam General Appearance: well developed/nourished, alert, awake, anxious, moderate distress, obese Head: atraumatic, normal appearance Eyes: Bilateral: normal appearance, PERRL, EOMI, normal inspection. Ears, Nose, Throat, Mouth: hearing grossly normal, moist mucous membrane Neck: normal inspection, supple, full range of motion, normal alignment, no midline tenderness Respiratory: normal breath sounds, chest non-tender, no respiratory distress, quiet respiration, lungs clear Cardiovascular: regular rate/rhythm, normal peripheral pulses, norml femoral pulses equa Peripheral Pulses: 4+ carotid (R), 4+ carotid (L) Gastrointestinal: normal bowel sounds, soft, no organomegaly, tenderness (left lower quadrant) Back: normal inspection, normal range of motion, no vertebral tenderness Extremities: normal range of motion, no ligament instability Neurologic/Psych: no motor/sensory deficits, awake, alert, oriented x 3, normal gait, normal mood/affect, 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 No Sepsis Present: No Sepsis Focused Exam Completed? No (Paolo FOUNTAIN,John) Progress Differential Diagnosis: kidney stone, ovarian cyst, ovarian torsion, UTI/pyelo Plan of Care: Orders Procedure Date/time Status Regular Diet 10/23 B Active MAGNESIUM 10/23 005 Complete LIPASE 10/23 0050 Complete COMPREHENSIVE METABOLIC PANEL 10/23 0050 Complete CBC WITHOUT DIFFERENTIAL 10/23 005 Complete URINE 10/22 2346 Complete URINALYSIS 10/22 2346 Complete Laboratory Tests 10/23/17 0150: Urine Color YEL, Urine Clarity CLEAR, Urine pH 6.0, Ur Specific Sparks >= 1.030 , Urine Protein NEG, Urine Ketones NEG, Urine Nitrite NEG, Urine Bilirubin NEG, Urine Urobilinogen 0.2, Ur Leukocyte Esterase NEG, Ur Microscopic EXAM NOT REQUIRED, Urine Hemoglobin NEG, Urine Glucose NEG, Urine Test NEGATIVE 10/23/17 0034: Anion Gap 10, Estimated GFR > 60, BUN/Creatinine Ratio 12.9, Glucose 115 H, Calcium 9.0, Magnesium 1.8, Total Bilirubin 0.2, AST 14, ALT 16, Alkaline Phosphatase 83, Total Protein 7.2, Albumin 3.9, Globulin 3.3, Albumin/Globulin Ratio 1.2, Lipase 51, CBC w Diff MAN DIFF ORDERED, RBC 4.91, MCV 57.5 L, MCH 17.8 L, MCHC 31.0 L, RDW 20.0 H, MPV 8.6, Gran % 68.4, Lymphocytes % 24.7, Monocytes % 4.8, Eosinophils % 1.9, Basophils % 0.2, Absolute Granulocytes 11.6 H, Absolute Lymphocytes 4.2 H, Absolute Monocytes 0.8 H, Absolute Eosinophils 0.3, Absolute Basophils 0, Platelet Estimate ADEQUATE, Polychromasia 1+, Hypochromic-Microcytic 2+, Anisocytosis 1+, Microcytic Cells 1+ Initial ED EKG: none Hand-Off Endorsed To: Myra Blanchard MD Endorsed Time: 0700 Pending: ultrasound (John Boone MD) Comments: 10/23 [address] Lamar, she has not seen the patient does. I spoke with the on-call [employer], she is coming up to see the patient. The patient reports continued pain. The ultrasound report has been discussed with both the GYNs. 1133 Dr. Paz-hari came down and saw the patient in the emergency room. Recommendation: The patient should get further workup because of the nature of her ovarian cyst and she should likely get a complete hysterectomy. I recommend outpatient workup, given the patient's ultrasound and exam no emergent procedure is needed. She spoke with the patient and made her aware of this as well. Plan will be follow-up with patient's [employer] per the recommendation of the [employer] who saw the patient today. Emergency room return warnings. Torsion warnings given to the patient. (Myra Blanchard MD) Departure Departure Disposition: STILL A PATIENT Condition: Stable Clinical Impression Primary Impression: Ovarian cyst Secondary Impressions: Leukocytosis, Uterine fibroid Referrals: Naresh Colin APRN (PCP/Family) Departure Forms: Customer Survey General Discharge Information (John Boone MD) Departure Time of Disposition: 113 Additional Instructions: Return for any severe or intractable pain Return for any change in pain. Call and follow-up with your [employer] as discussed today. Continue your pain medications per your pain management but he can also take Naprosyn twice a day (Myra Blanchard MD)
[2017-10-23 01:46] LABS: ABSOLUTE BASOPHIL COUNT 0 /CUMM (0.0-0.2); ABSOLUTE EOSINOPHIL COUNT 0.3 /CUMM (0.0-0.7); ABSOLUTE GRANULOCYTE CT 11.6 /CUMM (1.4-6.5); ABSOLUTE LYMPH COUNT 4.2 /CUMM (1.2-3.4); ABSOLUTE MONOCYTE COUNT 0.8 /CUMM (0.10-0.60); BASOPHIL % 0.2 % (0.0-2.0); EOSINOPHIL % 1.9 % (0-5); GRANULOCYTE % 68.4 % (42.2-75.2); HEMATOCRIT 28.2 % (37-47); MEAN CORPUSCULAR HGB 17.8 PG (27.0-31.0); MEAN CORPUSCULAR VOLUME 57.5 FL (81.0-99.0); MEAN PLATELET VOLUME 8.6 FL (7.4-10.4); PLATELET COUNT 340 /CUMM (130-400); RED BLOOD CELL CT 4.91 /CUMM (4.20-5.40); WHITE BLOOD CELL COUNT 16.9 /CUMM (4.8-10.8)
--- NOTE | 2017-10-23 09:01 | ULTRASOUND REPORT ---
EXAMINATION: ULTRASOUND OF THE PELVIS CLINICAL INFORMATION: Left adnexal cyst seen on CT scan with continued pain, nausea and vomiting. COMPARISON: CT scan of the abdomen and pelvis dated 10/12/2017 and 10/15/2015. Pelvic ultrasound dated 10/15/2015. TECHNIQUE: Transabdominal and transvaginal pelvic ultrasound. A transvaginal study was performed in addition to the transabdominal study which did not yield an adequate examination of the uterus and ovaries due to superimposed distended gas-filled loops of bowel. FINDINGS: Uterus: The uterus is anteverted and enlarged, measuring 14.1 x 8.9 x 9.3 cm. The endometrial stripe thickness is normal, measuring 0.8 cm in thickness. Again seen are multiple variably sized uterine masses, most consistent with uterine fibroids. The largest of these masses is and exophytic uterine fundal fibroid, measuring 7.0 x 3.9 x 3.5 cm previously measuring 6.1 x 3.1 x 3.1 cm. Additional exophytic left-sided uterine fundal fibroid measures 3.8 x 3.2 x 3.7 cm as compared to 4.4 x 3.4 x 4.3 cm. A exophytic right-sided uterine fundal fibroid measures 2.2 x 1.5 x 1.9 cm versus 2.2 x 1.5 x 1.9 cm previously. In the lower uterine segment/upper cervix posteriorly and to the right side, there is a 3.5 x 3.0 x 3.0 cm heterogeneous echogenicity shadowing mass, not appreciated on prior ultrasound but likely seen on previous CT scan and consistent with a exophytic lower uterine segment/cervical fibroid. The cervical length is normal measuring 3.7 cm. Prominent nabothian cysts are seen in the cervix, measuring up to 2.3 x 1.3 x 1.5 cm in size. Ovaries: The ovaries bilaterally are visualized. The right ovary is enlarged, measuring 3.7 x 3.1 x 2.6 cm (15.6 mL volume) and demonstrates small follicles and larger follicular cysts, largest of which is 2.5 x 2.9 x 2.5 cm in size. The left ovary measures 8.4 x 6.8 x 8.0 cm (23.9 mL volume) and demonstrates a large mildly complicated cystic mass with thin internal septation, measuring 7.9 x 5.2 x 6.8 cm, as compared to 2.3 x 1.8 x 2.5 cm (10/15/2015). With color Doppler imaging, normal arterial and venous flow to both ovaries is seen. Other: Trace amount of free fluid is seen in the cul-de-sac. IMPRESSION: 1. Enlarged fibroid uterus with interval enlargement of some of the fibroids, including the exophytic uterine fundal fibroids as discussed above. 2. Ovaries bilaterally are cystic. Dominant finding is a large mildly complicated and septated left ovarian cystic mass, increased in size when compared to 10/15/2015. Finding may represent a benign enlarging cyst, though given the large size and slight internal complexity, consideration to surgical excision is recommended to exclude an enlarging cystic neoplasm, such as a cystadenoma. 3. No evidence of ovarian torsion.
[2017-10-23 11:01] VITALS: BP 99/61
[2017-10-23] MEDS ORDERED: NAPROSYN500 M1 PO (11:37)
== END 2017-10-23 11:50 ==
LOC: ERH 23:26
PROVIDERS: Emergency Medicine
DX: N83.209 Unspecified ovarian cyst, unspecified side (principal); D72.829 Elevated white blood cell count, unspecified; D25.9 Leiomyoma of uterus, unspecified; D53.9 Nutritional anemia, unspecified; J44.9 Chronic obstructive pulmonary disease, unspecified
CPT/HCPCS: 81003; 81025; J0131; J2405